=== PATIENT | male | born 1985 | race Caucasian/White ===

== ENCOUNTER 2018-02-04 12:06 | Emergency (ER) | payer OTHER ==
[2018-02-04 12:06] VITALS: BMI 27.2
[2018-02-04 12:17] VITALS: BP 110/71; PULSE 63; RESP 16; TEMP 97; O2SAT 100
[2018-02-04] MEDS ORDERED: Oxycodone/Acetaminophen 5/325 mg Tab PO STA (12:24)
[2018-02-04] MEDS ORDERED: Oxycodone/Acetaminophen 5/325 mg Tab ONE (12:28)
--- NOTE | 2018-02-04 12:28 | ED PDOC ---
HPI: Back Time Seen by Provider: 02/04/18 12:20 Chief Complaint (Nursing): Back Pain Chief Complaint (Provider): Back Pain History Per: Patient History/Exam Limitations: no limitations Onset/Duration Of Symptoms: Days (x2) Current Symptoms Are (Timing): Still Present Additional History Per: EMS Additional Complaint(s): 32 year old male, with a history of back surgery for herniated discs, presents to the emergency department via EMS complaining of lower back pain, onset yesterday. The patient states that while pulling up his socks, he felt a twitch in his lower back accompanied by severe pain which also radiates down his right thigh. He is worried about screws coming loose from his previous back surgery and wishes to have an x-ray done. Denies urinary or rectal incontinence. Reports taking Tylenol yesterday with no relief. PMD: none provided Past Medical History Reviewed: Historical Data, Nursing Documentation, Vital Signs Vital Signs: Last Vital Signs Temp 97 F L 02/04/18 12:13 Pulse 63 02/04/18 12:13 Resp 16 02/04/18 12:13 BP 110/71 02/04/18 12:13 Pulse Ox 100 02/04/18 12:13 - Medical History PMH: Back Problems Denies: Chronic Kidney Disease - Surgical History Surgical History: Back Surgery - Family History Family History: States: Unknown Family Hx - Immunization History Hx Tetanus Toxoid Vaccination: No Hx Influenza Vaccination: No Hx Pneumococcal Vaccination: No - Home Medications Home Medications: Ambulatory Orders Medication Instructions Recorded Bacitracin 1 gm TOP BID #1 tube 10/14/16 Acetaminophen [Acetaminophen Extra 2 tab PO Q6 PRN #24 tablet 02/04/18 Strength] Naproxen 375 mg PO Q8 PRN #21 tablet 02/04/18 diaZEpam [Valium] 5 mg PO Q8 PRN #5 tab 02/04/18 - Allergies Allergies/Adverse Reactions: Allergies Allergy/AdvReac Type Severity Reaction Status Date / Time No Known Allergies Allergy Verified 10/14/16 17:49 Review of Systems ROS Statement: Except As Marked, All Systems Reviewed And Found Negative Genitourinary Male: Negative for: Incontinence (urinary and rectal) Musculoskeletal: Positive for: Back Pain (severe, lower, radiating down right thigh) Physical Exam - Reviewed Nursing Documentation Reviewed: Yes Vital Signs Reviewed: Yes - Physical Exam Appears: Positive for: Non-toxic, No Acute Distress Head Exam: Positive for: ATRAUMATIC, NORMOCEPHALIC Skin: Positive for: Normal Color, Warm, Dry Eye Exam: Positive for: Normal appearance Neck: Positive for: Normal, Painless ROM Cardiovascular/Chest: Positive for: Regular Rate, Rhythm. Negative for: Murmur Respiratory: Positive for: Normal Breath Sounds. Negative for: Accessory Muscle Use, Respiratory Distress Gastrointestinal/Abdominal: Positive for: Normal Exam, Soft. Negative for: Tenderness Back: Positive for: Other (moderate paralumbar tenderness, right greater than left) Extremity: Positive for: Other (5/5 lower extremity strength) Neurologic/Psych: Positive for: Alert, Oriented - ECG O2 Sat by Pulse Oximetry: 100 (RA) Pulse Ox Interpretation: Normal Medical Decision Making Medical Decision Making: Time: 12:23 Initial Impression: lower back pain Initial Plan: --Percocet 1 tab PO --Toradol 30mg IM --LS Spine Ap/Lat XR Time: 12:45 Lumbar Spine XR FINDINGS: BONES: Prior posterior transpedicular fusion of L5-S1. Hardware appears intact. Normal alignment. No listhesis. No fracture. DISC SPACES: Unremarkable. OTHER FINDINGS: None. IMPRESSION: Prior posterior fusion of L5-S1. No acute fracture or obvious listhesis. Scribe Attestation: Documented by Joan Calix, acting as a scribe for Elza Jackson PA-C Provider Scribe Attestation: All medical record entries made by the Scribe were at my direction and personally dictated by me. I have reviewed the chart and agree that the record accurately reflects my personal performance of the history, physical exam, medical decision making, and the department course for this patient. I have also personally directed, reviewed, and agree with the discharge instructions and disposition. Disposition - Clinical Impression Clinical Impression: Back strain - Patient ED Disposition Is Patient to be Admitted: No - Disposition Disposition: Routine/Home Disposition Time: 13:18 Condition: FAIR Prescriptions: Acetaminophen [Acetaminophen Extra Strength] 2 tab PO Q6 PRN #24 tablet PRN Reason: Pain, Severe (8-10) diaZEpam [Valium] 5 mg PO Q8 PRN #5 tab PRN Reason: Muscle Spasm Naproxen 375 mg PO Q8 PRN #21 tablet PRN Reason: Pain, Severe (8-10) Instructions: Low Back Pain (DC) Forms: [facility] (Ukrainian), [facility] ED School/Work Excuse
--- NOTE | 2018-02-04 12:47 | RAD ---
PROCEDURE: Radiographs of the Lumbar Spine. HISTORY: BACK PAIN H/O SX COMPARISON: No prior. FINDINGS: BONES: Prior posterior transpedicular fusion of L5-S1. Hardware appears intact. Normal alignment. No listhesis. No fracture. DISC SPACES: Unremarkable. OTHER FINDINGS: None. IMPRESSION: Prior posterior fusion of L5-S1. No acute fracture or obvious listhesis.
== END 2018-02-04 13:53 | disposition home or self-care (01) ==
LOC: H.ER 12:06
DX: S39.012A Strain of muscle, fascia and tendon of lower back, initial encounter (principal); Y92.89 Other specified places as the place of occurrence of the external cause; Z98.1 Arthrodesis status
CPT/HCPCS: 72100; 96372; 99282; J1885